=== PATIENT | male | born 2000 | race Caucasian/White ===

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

== ENCOUNTER 2021-01-10 14:00 | Emergency (ER) | payer OTHER, MEDICAID ==
--- NOTE | 2021-01-10 14:15 | ED Physician Documentation ---
PD HPI URI - Stated complaint Stated Complaint: SOA,BURNING WHEN BREATHING - Chief complaint Chief Complaint: Resp - History obtained from History obtained from: Patient - History of Present Illness Timing - onset: How many weeks ago (1) Timing duration: Weeks (1) Timing details: Gradual onset, Still present Associated symptoms: Nasal congestion (congested, and particularly in mornings is getting large sinus/posterior nasopharynx clump of green stuff down to throat. Has cough as well with feeling of chest tightness.), Sinus pain. No: Fever, Chills Contributing factors: Unimmunized. No: Sick contact, Travel, COPD / asthma Similar symptoms before: Has not had sx before Recently seen: Not recently seen Review of Systems Constitutional: denies: Fever, Chills Ears: denies: Ear pain Nose: reports: Congestion, Sinus pressure / pain. denies: Rhinorrhea / runny nose Throat: denies: Swollen tonsils Cardiac: denies: Chest pain / pressure Respiratory: reports: Dyspnea, Cough, Wheezing Skin: denies: Rash, Lesions PD PAST MEDICAL HISTORY - Past Medical History Cardiovascular: None Respiratory: None Neuro: None Endocrine/Autoimmune: None Psych: ADD/ADHD - Past Surgical History Past Surgical History: No - Present Medications Home Medications: Ambulatory Orders Medication Instructions Recorded Confirmed Albuterol Sulf [Ventolin Hfa 2 - 3 puffs INH Q4HR PRN #1 inhaler 01/10/21 Inhaler] Amoxicillin 500 mg PO TID #20 cap 01/10/21 Benzonatate [Tessalon] 100 mg PO TID PRN #20 cap 01/10/21 dexAMETHasone [Decadron] 4 mg PO DAILY #5 tablet 01/10/21 - Allergies Allergies/Adverse Reactions: Allergies Allergy/AdvReac Type Severity Reaction Status Date / Time No Known Drug Allergies Allergy Verified 01/10/21 14:11 - Social History Does the pt smoke?: Yes Smoking Status: Current every day smoker Does the pt drink ETOH?: Yes Does the pt have substance abuse?: Yes - Immunizations Immunizations are current?: Yes PD ED PE NORMAL - Vitals Vital signs reviewed: Yes - General General: Alert and oriented X 3, No acute distress, Well developed/nourished - HEENT HEENT: Ears normal, Moist mucous membranes, Pharynx benign - Neck Neck: Supple, no meningeal sign, No adenopathy - Cardiac Cardiac: RRR, No murmur - Respiratory Respiratory: Clear bilaterally - Abdomen Abdomen: Soft, Non tender - Derm Derm: Normal color, Warm and dry, No rash - Extremities Extremities: No edema, No calf tenderness / cord - Neuro Neuro: Alert and oriented X 3, No motor deficit, Normal speech Results - Vitals Vitals: Oxygen O2 Source Room air - Labs Labs: Laboratory Tests 01/10/21 15:18 Coronavirus (PCR) NEGATIVE - Rads (name of study) chest xray Radiology: Prelim report reviewed (no infiltrates nor acute process), See rad report PD MEDICAL DECISION MAKING - ED course Complexity details: reviewed results, re-evaluated patient (he feels better after MDI treatment. ), considered differential, d/w patient Departure - Departure Disposition: 01 Home, Self Care Clinical Impression: Upper respiratory infection Qualifiers: URI type: unspecified URI Qualified Code(s): J06.9 - Acute upper respiratory infection, unspecified Sinusitis, acute Qualifiers: Sinusitis location: frontal Recurrence: non-recurrent Qualified Code(s): J01.10 - Acute frontal sinusitis, unspecified Dyspnea Qualifiers: Dyspnea type: dyspnea on exertion Qualified Code(s): R06.00 - Dyspnea, unspecified Condition: Stable Record reviewed to determine appropriate education?: Yes Instructions: ED Sinusitis Abx Tx Prescriptions: Albuterol Sulf [Ventolin Hfa Inhaler] 2 - 3 puffs INH Q4HR PRN #1 inhaler PRN Reason: Shortness Of Air/Wheezing Amoxicillin 500 mg PO TID #20 cap dexAMETHasone [Decadron] 4 mg PO DAILY #5 tablet Benzonatate [Tessalon] 100 mg PO TID PRN #20 cap PRN Reason: Cough Comments: Your chest x-ray is clear without any signs of pneumonia. Your vital signs are good and oxygenation level is normal. It sounds like some irritation of the sinuses and bronchioles and likely an infection of the sinuses. We can treat you with an albuterol inhaler 2 to 3 puffs 4 times a day for the next several days to a week to help with the breathing and cough. Dexamethasone steroid anti-inflammatory daily for 5 more days to help with infla mmation in both sinuses and bronchioles. Amoxicillin antibiotic as directed for likely infection of the sinuses. Add Tessalon if needed for cough. Tylenol if needed for fevers or pains. I would anticipate improvement in the next several days and resolved over 3 to 5 days or so. Recheck if worsening. Discharge Date/Time: 01/10/21 15:26
[2021-01-10] MEDS ORDERED: ALBUTEROL 1 PUFF INH STA (14:27)
[2021-01-10] MEDS ORDERED: CHERRY SYRUP 10 ML UDC PO ONE (14:27)
[2021-01-10] MEDS ORDERED: BENZONATATE 100 MG CAPSULE PO STA (14:27)
[2021-01-10] MEDS ORDERED: AMOXICILLIN 250 MG CAPSULE PO STA (14:27)
[2021-01-10] MEDS ORDERED: DEXAMETHASONE 10 MG/ML VIAL PO STA (14:27)
--- NOTE | 2021-01-10 14:47 | XRAY Report ---
PROCEDURE: Chest 2 View X-Ray INDICATIONS: dyspnea/ cough TECHNIQUE: 2 view(s) of the chest. COMPARISON: None. FINDINGS: Surgical changes and devices: None. Lungs and pleura: No pleural effusions or pneumothorax. Lungs are clear. Mediastinum: Mediastinal contours are normal. Heart size is normal. Bones and chest wall: No suspicious bony abnormalities. Soft tissues appear unremarkable. IMPRESSION: No acute cardiopulmonary disease process. Reviewed by: Inga Jackson MD, PhD on 01/10/2021 2:45 PM PDT Approved by: Inga Jackson MD, PhD on 01/10/2021 2:45 PM PDT Station ID: [id number]
[2021-01-10 15:23] VITALS: BP 111/58
== END 2021-01-10 15:26 | disposition home or self-care (01) ==
LOC: ED 14:00
DX: J06.9 Acute upper respiratory infection, unspecified (principal); J01.10 Acute frontal sinusitis, unspecified; F17.200 Nicotine dependence, unspecified, uncomplicated; Z20.822 Contact with and (suspected) exposure to COVID-19
CPT/HCPCS: 71046; 87635; 94640; 99283; 99284; A9270

== ENCOUNTER 2021-03-07 07:57 | Emergency (ER) | payer OTHER, MEDICAID ==
--- NOTE | 2021-03-07 08:10 | ED Physician Documentation ---
PD HPI UPPER EXT INJURY - Stated complaint Stated Complaint: RT FINGER INJ - Chief complaint Chief Complaint: Trauma Ext - History obtained from History obtained from: Patient - History of Present Illness Location: Right, Hand (5th MC end area) Type of injury: Other (punched a wall, with pain at 5th MC) Timing - onset: Last night Timing - details: Abrupt onset Improved by: Rest Worsened by: Moving, Palpating Associated symptoms: Swelling (local over 5th MC). No: Weakness, Numbness Similar symptoms before: Has not had sx before Recently seen: Not recently seen Review of Systems Skin: denies: Abrasion (s), Laceration (s) Neurologic: denies: Focal weakness, Numbness PD PAST MEDICAL HISTORY - Past Medical History Past Medical History: Yes Cardiovascular: None Respiratory: None Neuro: None Endocrine/Autoimmune: None GI: None : None HEENT: None Psych: ADD/ADHD Musculoskeletal: None Derm: None - Past Surgical History Past Surgical History: No - Present Medications Home Medications: Ambulatory Orders Medication Instructions Recorded Confirmed No Known Home Medications 03/07/21 03/07/21 - Allergies Allergies/Adverse Reactions: Allergies Allergy/AdvReac Type Severity Reaction Status Date / Time No Known Drug Allergies Allergy Verified 03/07/21 08:03 - Social History Does the pt smoke?: Yes Smoking Status: Current every day smoker Does the pt drink ETOH?: Yes Does the pt have substance abuse?: Yes Substance Use and Type: Marijuana - Immunizations Immunizations are current?: Yes - POLST Patient has POLST: No PD ED PE NORMAL - Vitals Vital signs reviewed: Yes - General General: Alert and oriented X 3, No acute distress, Well developed/nourished - Derm Derm: Normal color, Warm and dry - Extremities Extremities: Other (Locally tender with swelling over distal 5th MC. No gross deformity. Able to flex and extend. No malrotation with flexion. Normal color and cap refill. ) - Neuro Neuro: No motor deficit, No sensory deficit Results - Vitals Vitals: Vital Signs - 24 hr 03/07/21 03/07/21 08:03 09:10 Temperature 36.7 C 36.8 C Heart Rate 68 56 L Respiratory 16 18 Rate Blood Pressure 110/71 107/67 O2 Saturation 99 97 Oxygen O2 Source Room air - Rads (name of study) right hand Radiology: Prelim report reviewed, EMP read contemporaneously, See rad report Procedures - Splint (location) right hand Splint applied by: Physician Type of splint: Ulnar gutter (velcro type, fitted by me) Other: Patient tolerated well, No complications, Neurovascular intact PD MEDICAL DECISION MAKING - ED course Complexity details: reviewed results, considered differential, d/w patient Departure - Departure Disposition: 01 Home, Self Care Clinical Impression: Nondisplaced fracture of shaft of fifth metacarpal bone, right hand, sequela Condition: Stable Record reviewed to determine appropriate education?: Yes Instructions: ED Fx Boxer Follow-Up: Yoan Hemphill MD [Provider Admit Priv/Credential] - Comments: The splint regularly to protect the fracture of the next 4 weeks. Light activity as tolerated with that hand otherwise. Follow-up with orthopedics in about a week and a half to ensure its healing okay along the way. Call for an appointment. Elevate ice and rested often today and tomorrow to reduce swelling. Anti- inflammatory such as ibuprofen or naproxen 2-3 times a day regularly. Add Tylenol to that if needed for pain. Discharge Date/Time: 03/07/21 09:15
[2021-03-07] MEDS ORDERED: IBUPROFEN 600 MG TABLET PO STA (08:14)
[2021-03-07] MEDS ORDERED: ACETAMINOPHEN 325 MG TABLET PO STA (08:14)
--- NOTE | 2021-03-07 08:34 | XRAY Report ---
PROCEDURE: Hand 3 View RT INDICATIONS: punched a wall TECHNIQUE: 3 views of the hand(s) acquired. COMPARISON: 11/11/2020 FINDINGS: Bones: Nonacute fracture of the fifth metacarpal. Bridging trabeculae have formed in the interval sin ce prior exam obtained 11/11/2020. Fifth metacarpal fracture is healing in deformity. Soft tissues: No suspicious soft tissue calcifications. IMPRESSION: 1. Nonacute fifth metacarpal fracture. 2. No acute fracture. Reviewed by: Inga Jackson MD, PhD on 03/07/2021 8:32 AM PDT Approved by: Inga Jackson MD, PhD on 03/07/2021 8:32 AM PDT Station ID: [id number]
[2021-03-07 09:11] VITALS: BP 107/67
== END 2021-03-07 09:15 | disposition home or self-care (01) ==
LOC: ED 07:57
DX: S62.356A Nondisplaced fracture of shaft of fifth metacarpal bone, right hand, initial encounter for closed fracture (principal); W22.8XXA Striking against or struck by other objects, initial encounter; Y93.89 Activity, other specified; F17.200 Nicotine dependence, unspecified, uncomplicated
CPT/HCPCS: 73130; 99282; 99283; A9270

== ENCOUNTER 2024-04-02 15:26 | Emergency (ER) | payer MEDICAID, OTHER ==
[2024-04-02 15:36] VITALS: BP 123/73; O2SAT 99
--- NOTE | 2024-04-02 15:53 | XRAY Report ---
PROCEDURE: Hand 3+V RT INDICATIONS: Trauma TECHNIQUE: 3 views of the hand(s) acquired. COMPARISON: 11/11/2020 FINDINGS: Bones: No acute fractures or dislocations. No suspicious bony lesions. Healed fracture deformity of the fifth carpal. Soft tissues: No suspicious soft tissue calcifications or masses. IMPRESSION: No acute bony abnormality. Healed fracture deformity of the fifth metacarpal. Reviewed by: Jw Wiley MD on 04/02/2024 3:52 PM PDT Approved by: Jw Wiley MD on 04/02/2024 3:52 PM PDT Station ID: [id number]
--- NOTE | 2024-04-02 16:15 | ED Physician Documentation ---
History of Present Illness - Stated complaint Stated Complaint: RT HAND INJ - Chief complaint Chief Complaint: Trauma Ext - History obtained from History obtained from: Patient - Additonal information Additional information: Patient is a 24-year-old male presents to the emergency department after a fall at work. He notes he works in [employer]. He notes he fell backwards when he landed on his right hand. He notes about a year ago he sustained a boxer's fracture after punching a mailbox and injured his fifth metacarpal. He did not follow-up with anyone and waited for symptoms to resolve. He denies any numbness or tingling to his extremity. He notes he is right-handed. No obvious swelling. PD PAST MEDICAL HISTORY - Past Medical History Past Medical History: Yes Cardiovascular: None Respiratory: None Neuro: None Endocrine/Autoimmune: None GI: None : None HEENT: None Psych: ADD/ADHD Musculoskeletal: None Derm: None - Past Surgical History Past Surgical History: No - Present Medications Home Medications: Ambulatory Orders Medication Instructions Recorded Confirmed No Known Home Medications 03/07/21 03/07/21 - Allergies Allergies/Adverse Reactions: Allergies Allergy/AdvReac Type Severity Reaction Status Date / Time No Known Drug Allergies Allergy Verified 04/02/24 15:28 - Social History Does the pt smoke?: Yes Smoking Status: Current every day smoker Does the pt drink ETOH?: Yes Does the pt have substance abuse?: Yes - Immunizations Immunizations are current?: Yes - POLST Patient has POLST: No PD ED PE NORMAL - Vitals Vital signs reviewed: Yes - General General: Alert and oriented X 3 - HEENT HEENT: Atraumatic - Neck Neck: Supple, no meningeal sign - Cardiac Cardiac: RRR, No murmur, No gallop, No rub - Respiratory Respiratory: No respiratory distress, Clear bilaterally - Abdomen Abdomen: Normal bowel sounds, Soft, Non tender, Non distended. No: No organomegaly, Other - Back Back: No CVA TTP - Extremities Extremities: No deformity, No tenderness to palpate (\pain on palpation of the right fifth metacarpal.No obvious deformity or swelling. Reproducible tenderness on examination. Full ROM of DIP and PIP joints of fifth digit. Full sensation intact distally. Radial pulse 2+) Results - Vitals Vitals: Vital Signs - 24 hr 04/02/24 15:29 Temperature 36.5 C Heart Rate 71 Respiratory 16 Rate Blood Pressure 123/73 O2 Saturation 99 Oxygen O2 Source Room air - Rads (name of study) right hand X-ray Relevant Findings:: EMP independent interpretation of test PD Medical Decision Making - ED course Complexity details: reviewed old records, reviewed results ED course: Patient is a 24-year-old male presenting to the emergency department with right hand pain after falling while at work he landed on his right hand on outstretched hand. He notes pain to the lateral portion of his right hand along the right metacarpal. He denies any numbness or tingling. He does report history of injury about a year ago after punching a mailbox he sustained a boxer's fracture he did not follow-up in the outpatient setting. Patient has sensation in digits 1 through 5 intact full range of motion at DIP and PIP joints and MCP joints on examination. Reproducible tenderness along fifth metacarpal no obvious deformity he has 2+ radial pulse full strength and range of motion of right wrist intact and no reproducible tenderness along the right elbow or right forearm. Full range of motion of right elbow intact. X-rays obtained here in the emergency department showNo new acute bony abnormality however there does appear to be a healed fracture deformity of her fifth metacarpal. Patient updated on reassuring findings.Patient has old the splint from when he fractured right fifth metacarpal before. Patient has ulnar gutter Velcro splint. He feels significantly better with it on. Discussed with patient s ymptoms could be secondary to previous injury over the area recommending he follow-up with orthopedics in the outpatient setting to ensure good routine healing from previous fracture at this time. Patient is agreeable with this plan. He was given the number for orthopedics in the outpatient setting. Patient will return with any new or worsening symptoms including numbness, tingling or loss of sensation. He was instructed to elevate ice and take NSAIDs. He is agreeable with this plan. Departure - Departure Disposition: 01 Home, Self Care Clinical Impression: Displaced fracture of neck of right fifth metacarpal bone with routine healing, Sprain of right hand Condition: Good Instructions: ED Sprain Finger Comments: You were seen here in the emergency department for your pain to your right hand your workup here showed no acute findings. There is an old healed fracture of your fifth digit most likely from the one you are describing over a year ago. Continue to wear your splint at home and take ibuprofen 800 mg every 8 hours for pain control. You should follow-up with orthopedics in the outpatient setting. I have given you follow-up number. Remain off of work as described in your work note Forms: PCP List Discharge Date/Time: 04/02/24 16:26
== END 2024-04-02 16:26 | disposition home or self-care (01) ==
LOC: ED 15:26
DX: S62.336D Displaced fracture of neck of fifth metacarpal bone, right hand, subsequent encounter for fracture with routine healing (principal); W22.09XD Striking against other stationary object, subsequent encounter; S63.91XA Sprain of unspecified part of right wrist and hand, initial encounter; W18.30XA Fall on same level, unspecified, initial encounter; Y99.0 Civilian activity done for income or pay; F17.200 Nicotine dependence, unspecified, uncomplicated
CPT/HCPCS: 99283